=== PATIENT | male | born 1960 | race Caucasian/White ===

== ENCOUNTER 2018-02-09 01:11 | Inpatient (IN) | payer BC, OTHER ==
[2018-02-09 01:11] VITALS: BMI 33.4
[2018-02-09] MEDS ORDERED: Albuterol-Ipratrop 3 mg / 0.5 (3 ml) UD ONE ×3 (01:17→02:00)
[2018-02-09] MEDS ORDERED: Albuterol-Ipratrop 3 mg / 0.5 (3 ml) UD INH STA ×4 (01:26→02:02)
[2018-02-09] MEDS ORDERED: Sodium Chloride 0.9% 1,000 ML IV ONE (01:32)
--- NOTE | 2018-02-09 01:35 | C.PDOC ---
History Of Present Illness 57 year old male presents to the ED for evaluation of SOB associated with productive cough with white sputum. Patient states he used his nebulizer at home with no relief. Patient denies fever, chills, nausea, vomit, recent travel , sick contacts. Time Seen by Provider: 02/09/18 01:34 Chief Complaint (Nursing): Respiratory Distress History Per: Patient History/Exam Limitations: no limitations Onset/Duration Of Symptoms: Days Current Symptoms Are (Timing): Still Present Initiating Event: Upper Respiratory Illness Quality: Tightness Current Respiratory Medications: See Home Med List Associated Symptoms: Productive Cough Recent travel outside of the [place]: No Additional History Per: Patient Past Medical History Reviewed: Historical Data, Nursing Documentation, Vital Signs Vital Signs: Last Vital Signs Temp 98.9 F 02/09/18 03:22 Pulse 118 H 02/09/18 03:22 Resp 22 02/09/18 03:22 BP 129/90 02/09/18 03:22 Pulse Ox 100 02/09/18 03:22 - Medical History PMH: Asthma Surgical History: No Surg Hx Family History: States: Unknown Family Hx - Social History Hx Alcohol Use: No Hx Substance Use: No - Immunization History Hx Tetanus Toxoid Vaccination: No Hx Influenza Vaccination: No Hx Pneumococcal Vaccination: No Review Of Systems Constitutional: Negative for: Fever, Chills Respiratory: Positive for: Cough, Shortness of Breath, Sputum Gastrointestinal: Negative for: Nausea, Vomiting, Abdominal Pain Skin: Negative for: Rash Neurological: Negative for: Weakness, Numbness Physical Exam - Physical Exam Appears: Non-toxic, No Acute Distress Skin: Normal Color, Warm, Dry Head: Atraumatic, Normacephalic Eye(s): bilateral: Normal Inspection Nose: No Discharge Oral Mucosa: Moist Throat: Normal, No Erythema, No Exudate Neck: Normal ROM, Supple Chest: Symmetrical Cardiovascular: Rhythm Regular, No Murmur Respiratory: No Rales, No Rhonchi, Wheezing (B/L) Gastrointestinal/Abdominal: Soft, No Tenderness, No Guarding, No Rebound Extremity: Normal ROM, No Tenderness, No Swelling Neurological/Psych: Oriented x3 Gait: Steady ED Course And Treatment - Laboratory Results Result Diagrams: 02/09/18 01:41 02/09/18 01:41 ECG: Interpreted By Me, Viewed By Me ECG Rhythm: Sinus Tachycardia, ST/T Changes ECG Interpretation: No Acute Changes, No Changes From Prior, Abnormal Interpretation Of ECG: ST-T abnormality infero-layeral leads, abnormal tracings. Rate From EC O2 Sat by Pulse Oximetry: 95 (On RA) Pulse Ox Interpretation: Normal Medical Decision Making Medical Decision Making: Impression: SOB Plan: * EKG * Labs * CXR * Duoneb 3 ml INH * Solumedrol 125 mg IVP * IV fluids * Nebulizer treatment Disposition Discussed With DrJulienne: Andrea Schultz Jr. Doctor Will See Patient In The: Hospital Counseled Patient/Family Regarding: Diagnosis - Disposition Referrals: Non [facility] Provider, [Primary Care Provider] - Disposition: HOSPITALIZED Disposition Time: 04:06 Condition: STABLE Forms: [employer] (Polish) - POA Present On Arrival: None - Clinical Impression Clinical Impression: Exacerbation of asthma, Pneumonia - Scribe Statement The provider has reviewed the documentation as recorded by the Scribe Grupo Wilson All medical record entries made by the Scribe were at my direction and personally dictated by me. I have reviewed the chart and agree that the record accurately reflects my personal performance of the history, physical exam, medical decision making, and the department course for this patient. I have also personally directed, reviewed, and agree with the discharge instructions and disposition.
[2018-02-09] MEDS ORDERED: Sodium Chloride 0.9% 1,000 ML ONE (01:38)
[2018-02-09 01:47] LABS: BASO # 0.1 K/uL (0.0-0.2); BASO % 1.3 % (0.0-2.0); EOS # 0.3 K/uL (0.0-0.7); EOS % 4.7 % (0.0-4.0); HEMOGLOBIN 14.1 g/dL (12.0-18.0); LYMPH # 2.6 K/uL (1.0-4.3); LYMPH % 35.8 % (20.0-40.0); MEAN CELL VOLUME 77.9 fL (80.0-94.0); MEAN CORPUSCULAR HEMOGLOBIN 25.2 pg (27.0-31.0); MEAN CORPUSCULAR HGB CONC 32.4 g/dL (33.0-37.0); MONO # 0.9 K/uL (0.0-0.8); MONO % 12.1 % (0.0-10.0); NEUT # 3.3 K/uL (1.8-7.0); NEUT % 46.1 % (50.0-75.0); RBC 5.58 Mil/uL (4.40-5.90); RED CELL DISTRIBUTION WIDTH 14.1 % (11.5-14.5); WHITE BLOOD COUNT 7.2 K/uL (4.8-10.8)
[2018-02-09 01:57] LABS: ALB/GLOB RATIO 1.1 (1.0-2.1); ALBUMIN 3.8 g/dL (3.5-5.0); ALT/SGPT 42 U/L (21-72); AST/SGOT 21 U/L (17-59); BLOOD UREA NITROGEN 16 mg/dL (9-20); CALCIUM 8.4 mg/dl (8.6-10.4); GFR AFRICAN-AMERICAN > 60; GFR NON-AFRICAN AMERICAN > 60
[2018-02-09] MEDS ORDERED: Iohexol 350mg/ml 100 ML ONE (02:05)
[2018-02-09 02:08] LABS: B-TYPE NATRIURETIC PEPTIDE 1380 pg/mL (0-900)
[2018-02-09] MEDS: Magnesium Sulfate 1 gm in D5W 1 GM/100 ML BAG IVPB SCH ×2 (03:30→03:38)
[2018-02-09] MEDS ORDERED: Magnesium Sulfate 1 gm in D5W 1 GM/100 ML BAG IVPB ONE ×2 (03:34→03:44)
--- NOTE | 2018-02-09 03:41 | CT ---
EXAM: CT Chest Without and With Intravenous Contrast EXAM DATE/TIME: 02/09/2018 1:50 AM CLINICAL HISTORY: 57 years old, male; Pain; Chest pain; Prior surgery; Surgery type: Abd surgery; Patient HX: 08-28-15; Additional info: Sob/ wheezing/ abn. Chest CT before TECHNIQUE: Axial computed tomography images of the chest without and with intravenous contrast. All CT scans at this facility use one or more dose reduction techniques, viz.: automated exposure control; ma/kV adjustment per patient size (including targeted exams where dose is matched to indication; i.e. head); or iterative reconstruction technique. Coronal and sagittal reformatted images were created and reviewed. CONTRAST: 100 mL of [id number] administered intravenously. COMPARISON: CT - CHEST W/CONTRAST 2015-08-28 16:42 FINDINGS: Again seen is soft tissue density in the anterior right lung apex. On comparable images (image 23 prior, image 29) it has increased in size measuring 4 x 1.8 centimeters on prior and measuring 4.6 x 2.3 cm on current. There are are extensive cystic and bronchiectatic changes medial right lung apex similar to prior. There are multiple nodules in the left upper lung similar to prior (series 8 images 26, 44, 51. There is a pleural based soft tissue density measuring 1 cm in diameter series 8 image 69 increased in size slightly from prior. Patchy nodular infiltrate in the right lower lung new from prior. Bronchiectasis in the left lower lung similar to prior. Trace bilateral pleural fluid. Again seen is soft tissue density along the right superior aspect of the dion concerning for lymphadenopathy. The right posterior mediastinal lymphadenopathy seen on prior is not as apparent. No aortic aneurysm or dissection. Evaluation for pulmonary emboli limited by bolus timing and patient motion. IMPRESSION: Again seen is extensive bronchiectasis and cystic changes in the right upper lung. Again seen is soft tissue density within the anterior right lung apex and within the medial right upper lung, concerning for neoplasm and lymphadenopathy. As discussed in prior report, this could be further evaluated with PET scanning. Multiple nodules throughout the left lung some of which are similar to prior, one of which is increased as described in the body of the report. Nodular right lower lung infiltrate possibly of acute infectious/inflammatory etiology. Patient motion is present limiting exam.
[2018-02-09] MEDS ORDERED: Albuterol 0.083% Inhal Sol (2.5 mg/3 mL) UD IH STA (03:46)
[2018-02-09] MEDS ORDERED: cefTRIAXone IV 1 gm in Dextros 50 ML IVPB ONE ×2 (03:59→04:05)
[2018-02-09] MEDS ORDERED: Albuterol 0.083% Inhal Sol (2.5 mg/3 mL) UD ONE (03:59)
[2018-02-09] MEDS ORDERED: Azithromycin 500 MG in Sodium Chloride 0.9% 250 ML IVPB STA (04:00)
[2018-02-09 04:14] LABS: ABG ALLEN TEST POS; ARTERIAL BLOOD GAS HCO3 26.4 mmol/L (21-28); ARTERIAL BLOOD GAS HEMOGLOBIN 14.6 g/dL (11.7-17.4); ARTERIAL BLOOD GAS PCO2 52 mm/Hg (35-45); ARTERIAL BLOOD GAS PH 7.35 (7.35-7.45); ARTERIAL BLOOD GAS PO2 128 mm/Hg (80-100); ARTERIAL BLOOD GAS TCO2 30.3 mmol/L (22-28)
--- NOTE | 2018-02-09 04:39 | CP.PCM.HP ---
History of Present Illness - History of Present Illness History of Present Illness: CC: SOB HPI: Patient is a 57 y/o M with pmhx of asthma presents today for worsening shortness of breath. Patient started becoming short of breath and having chest congestion last . Patient had increasing cough with yellow phlegm. Patient denies fevers of sore throat. Patient denies chest pain, abdominal pain , N/V, C/D. Today patient used 3 nebulizer treatments. He went to sleep and woke up at midnight with chest tightness and severe shortness of breath and decided to come to the ED. Patient also complains of chest discomfort on the right side which he describes as something moving up and down. He experiences this when he is short of breath, but says it is not painful. Patient has never been intubated in the past but had a hospitalization for an asthma exacerbation in 1994 and 2012. Manager Corporate Responsibility: Dr. 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 absent: Sore Throat - Cardiovascular Cardiovascular: Dyspnea. absent: Chest Pain, Edema, Leg Edema, Palpitations - Respiratory Respiratory: Cough, Dyspnea, Dyspnea on Exertion, Wheezing, Excessive Mucous Production, Change in Mucous Color - Gastrointestinal Gastrointestinal: absent: Abdominal Pain, Change in Bowel Habits, Constipation, Diarrhea, Nausea, Vomiting - Musculoskeletal Musculoskeletal: absent: Arthralgias - Integumentary Integumentary: absent: Rash - Hematologic/Lymphatic Hematologic: absent: Easy Bleeding, Easy Bruising Past Patient History - Infectious Disease Hx of Infectious Diseases: None - Past Medical History & Family History Past Medical History?: Yes - Past Social History Smoking Status: Former Smoker - PULMONARY Hx Asthma: Yes - PSYCHIATRIC Hx Substance Use: No - SURGICAL HISTORY Hx Surgeries: Yes Hx Herniorrhaphy: Yes - ANESTHESIA Hx Anesthesia: Yes Hx Anesthesia Reactions: No Meds Allergies/Adverse Reactions: Allergies Allergy/AdvReac Type Severity Reaction Status Date / Time No Known Allergies Allergy Verified 02/09/18 01:20 Physical Exam - Additional Findings Additional findings: - Constitutional Appears: Non-toxic, No Acute Distress - Head Exam Head Exam: ATRAUMATIC, NORMAL INSPECTION, NORMOCEPHALIC - Eye Exam Eye Exam: EOMI, Normal appearance - ENT Exam ENT Exam: Mucous Membranes Moist - Respiratory Exam Respiratory Exam: Wheezes - Cardiovascular Exam Cardiovascular Exam: Tachycardia, REGULAR RHYTHM, +S1, +S2 - GI/Abdominal Exam GI & Abdominal Exam: Normal Bowel Sounds, Soft. absent: Tenderness - Extremities Exam Extremities exam: Positive for: normal inspection. Negative for: pedal edema - Back Exam Back exam: NORMAL INSPECTION - Neurological Exam Neurological exam: Alert, Oriented x3 - Psychiatric Exam Psychiatric exam: Normal Affect, Normal Mood - Skin Skin Exam: Intact, Normal Color, Warm Results - Vital Signs Recent Vital Signs: Last Vital Signs Temp 98.9 F 02/09/18 03:22 Pulse 118 H 02/09/18 03:22 Resp 22 02/09/18 03:22 BP 129/90 02/09/18 03:22 Pulse Ox 95 02/09/18 04:07 - Labs Result Diagrams: 02/09/18 01:41 02/09/18 01:41 Labs: Laboratory Results - last 24 hr 02/09/18 02/09/18 02/09/18 01:41 01:41 01:41 WBC 7.2 RBC 5.58 Hgb 14.1 Hct 43.5 MCV 77.9 L MCH 25.2 L MCHC 32.4 L RDW 14.1 Plt Count 281 MPV 9.0 Neut % (Auto) 46.1 L Lymph % (Auto) 35.8 [place] % (Auto) 12.1 H Eos % (Auto) 4.7 H Baso % (Auto) 1.3 Neut # (Auto) 3.3 Lymph # (Auto) 2.6 [place] # (Auto) 0.9 H Eos # (Auto) 0.3 Baso # (Auto) 0.1 D-Dimer, Quantitative < 200 Puncture Site pCO2 pO2 HCO3 ABG pH ABG Total CO2 ABG O2 Saturation ABG Base Excess ABG Hemoglobin ABG Carboxyhemoglobin POC ABG HHb (Measured) ABG Methemoglobin [place] Test Hgb O2 Saturation Liter Flow Sodium 139 Potassium 3.8 Chloride 99 Carbon Dioxide 28 Anion Gap 16 BUN 16 Creatinine 0.9 Est GFR ( Amer) > 60 Est GFR (Non-Af Amer) > 60 Random Glucose 110 Calcium 8.4 L Total Bilirubin 0.5 AST 21 ALT 42 Alkaline Phosphatase 45 Troponin I 0.0330 NT-Pro-B Natriuret Pep 1380 H Total Protein 7.3 Albumin 3.8 Globulin 3.4 Albumin/Globulin Ratio 1.1 02/09/18 04:10 WBC RBC Hgb Hct MCV MCH MCHC RDW Plt Count MPV Neut % (Auto) Lymph % (Auto) [place] % (Auto) Eos % (Auto) Baso % (Auto) Neut # (Auto) Lymph # (Auto) [place] # (Auto) Eos # (Auto) Baso # (Auto) D-Dimer, Quantitative Puncture Site Rr pCO2 52 H pO2 128 H HCO3 26.4 ABG pH 7.35 ABG Total CO2 30.3 H ABG O2 Saturation 99.0 H ABG Base Excess 2.0 ABG Hemoglobin 14.6 ABG Carboxyhemoglobin 1.9 H POC ABG HHb (Measured) 1.0 ABG Methemoglobin 1.3 [place] Test Pos Hgb O2 Saturation 95.8 Liter Flow 7.0 Sodium Potassium Chloride Carbon Dioxide Anion Gap BUN Creatinine Est GFR ( Amer) Est GFR (Non-Af Amer) Random Glucose Calcium Total Bilirubin AST ALT Alkaline Phosphatase Troponin I NT-Pro-B Natriuret Pep Total Protein Albumin Globulin Albumin/Globulin Ratio Assessment & Plan - Assessment and Plan (Free Text) Assessment: Asthma exacerbation CT: extensive bronchiectasis and cystic changes in right upper lung. soft tissue density within the anterior right lung apex and within the medial right upper lung, concerning for neoplasm and lymphadenopathy. could be further evaluated with PET scanning. multiple nodules throughout the left lung some of which are similar to prior, one of which is increase as described in body of the report. nodular right lower lung infiltrate possibly acute infectious/ inflammatory etiology D-Dimer <200 Duonebs q4h prn Solumedrol 40mg q8h Pulm consulted, Dr. Dominguez, help appreciated Right Lower Lobe Pneumonia see CT above f/u blood cultures Ceftriaxone 1gm daily Azithromycin 500mg daily Chest Discomfort Pro-BNP: 1380 Trop I : .0330 EKG: sinus tach at 114, biatrial enlargement f/u KE x2 Prophylaxis Pepcid 20mg po daily SCDs
[2018-02-09] MEDS ORDERED: Albuterol-Ipratrop 3 mg / 0.5 (3 ml) UD INH PRN (04:49)
[2018-02-09] MEDS: MethylPREDNISolone 40 mg Vial IVP SCH ×3 (06:56→19:56)
[2018-02-09] MEDS ORDERED: cefTRIAXone IV 1 gm in Dextros 50 ML IVPB SCH (07:00)
--- NOTE | 2018-02-09 07:51 | CP.PCM.PN ---
<Nelly Larios - Last Filed: 02/09/18 16:29> Subjective - Date & Time of Evaluation Date of Evaluation: 02/09/18 Time of Evaluation: 07:49 - Subjective Subjective: Progress note for Dr. Schultz Patient states his breathing is doing well. Patient states he did not have treatment today, but was told he would have a scheduled treatment. Patient explained his current plan of care. Patient denies fever, chills, cough, nausea , vomiting, diarrhea, constipation. Objective - Vital Signs/Intake and Output Vital Signs (last 24 hours): Temp Pulse Resp BP Pulse Ox 97.4 F L 122 H 20 123/72 97 02/09/18 05:30 02/09/18 06:00 02/09/18 05:30 02/09/18 05:30 02/09/18 05:30 Intake and Output: 02/09/18 02/09/18 06:59 18:59 Intake Total 1100 Output Total 400 Balance 700 - Medications Medications: Current Medications Albuterol/Ipratropium (Duoneb 3 Mg/0.5 Mg (3 Ml) Ud) 3 ml INH RQ4 PRN PRN Reason: Wheezing Albuterol/Ipratropium (Duoneb 3 Mg/0.5 Mg (3 Ml) Ud) 3 ml INH RQ4 [facility] Enoxaparin Sodium (Lovenox) 40 mg SC DAILY [facility] Famotidine (Pepcid) 20 mg PO DAILY [facility] Sodium Chloride (Sodium Chloride 0.9%) 1,000 mls @ 100 mls/hr IV .Q10H ONE Stop: 02/09/18 11:31 Last Admin: 02/09/18 01:35 Dose: 100 mls/hr Azithromycin 500 mg/ Sodium (Chloride) 250 mls @ 250 mls/hr IVPB DAILY [facility] PRN Reason: Protocol Ceftriaxone Sodium (Rocephin Iv 1 Gm Duplex) 50 mls @ 100 mls/hr IVPB Q12H [facility] PRN Reason: Protocol Last Admin: 02/09/18 06:28 Dose: 100 mls/hr Methylprednisolone (Solu-Medrol) 40 mg IVP Q8H [facility] Last Admin: 02/09/18 06:56 Dose: 40 mg Pneumococcal Polyvalent Vaccine (Pneumovax 23 Vaccine) 0.5 ml IM .ONCE ONE Stop: 03/25/18 10:01 - Labs Labs: 02/09/18 01:41 02/09/18 01:41 - Constitutional Appears: No Acute Distress - Head Exam Head Exam: ATRAUMATIC, NORMAL INSPECTION, NORMOCEPHALIC - Eye Exam Eye Exam: EOMI, Normal appearance Pupil Exam: NORMAL ACCOMODATION, PERRL - ENT Exam ENT Exam: Mucous Membranes Moist - Neck Exam Neck Exam: Full ROM. absent: Tenderness, Thyromegaly - Respiratory Exam Respiratory Exam: Wheezes, NORMAL BREATHING PATTERN. absent: Accessory Muscle Use - Cardiovascular Exam Cardiovascular Exam: Tachycardia, REGULAR RHYTHM, +S1, +S2 - GI/Abdominal Exam GI & Abdominal Exam: Soft, Normal Bowel Sounds. absent: Guarding, Rigid, Tenderness - Extremities Exam Extremities Exam: Full ROM, Normal Inspection. absent: Pedal Edema - Neurological Exam Neurological Exam: Awake, CN II-XII Intact, Oriented x3 - Psychiatric Exam Psychiatric exam: Normal Affect, Normal Mood - Skin Skin Exam: Dry, Intact, Normal Color, Warm Assessment and Plan - Assessment and Plan (Free Text) Assessment: 57M with pmh of asthma prsents with shortness of breath and chest congestion with productive cough. Asthma exacerbation CT: extensive bronchiectasis and cystic changes in right upper lung. soft tissue density within the anterior right lung apex and within the medial right upper lung, concerning for neoplasm and lymphadenopathy. could be further evaluated with PET scanning. multiple nodules throughout the left lung some of which are similar to prior, one of which is increase as described in body of the report. nodular right lower lung infiltrate possibly acute infectious/ inflammatory etiology D-Dimer <200 Duonebs q4h prn, alternating Duonebs Q4H [facility], discontinued atrovent IH Solumedrol 40mg q8h Pulm consult: Dr. Dominguez Right Lower Lobe Pneumonia see CT above f/u blood cultures Ceftriaxone 1gm daily Azithromycin 500mg daily Chest Discomfort Pro-BNP: 1380 Trop I : .0330, negative x 3 EKG: sinus tach at 114, biatrial enlargement Prophylaxis Pepcid 20mg po daily SCDs <Andrea Schultz Jr. - Last Filed: 02/13/18 15:46> Objective - Vital Signs/Intake and Output Vital Signs (last 24 hours): Temp Pulse Resp BP Pulse Ox 97.7 F 78 20 148/86 94 L 02/13/18 07:05 02/13/18 07:21 02/13/18 07:05 02/13/18 07:05 02/13/18 07:05 Intake and Output: 02/13/18 02/13/18 06:59 18:59 Intake Total 600 710 Output Total 200 Balance 400 710 - Medications Medications: Current Medications Albuterol/Ipratropium (Duoneb 3 Mg/0.5 Mg (3 Ml) Ud) 3 ml INH RQ4 [facility] Enoxaparin Sodium (Lovenox) 40 mg SC DAILY [facility] Last Admin: 02/13/18 10:02 Dose: 40 mg Famotidine (Pepcid) 20 mg PO DAILY [facility] Last Admin: 02/13/18 10:02 Dose: 20 mg Guaifenesin (Robitussin) 100 mg PO Q4H [facility] Last Admin: 02/13/18 13:36 Dose: 100 mg Moxifloxacin HCl (Avelox) 400 mg PO DAILY [facility] PRN Reason: Protocol Last Admin: 02/13/18 10:02 Dose: 400 mg - Labs Labs: 02/13/18 06:17 02/13/18 06:17 Attending/Attestation - Attestation I have personally seen and examined this patient.: Yes I have fully participated in the care of the patient.: Yes I have reviewed all pertinent clinical information, including history, physical exam and plan: Yes Notes (Text): 02/13/18 15:46 Agree with resident note and plan of care
[2018-02-09] MEDS: Albuterol-Ipratrop 3 mg / 0.5 (3 ml) UD INH SCH ×4 (08:06→20:02)
[2018-02-09 08:14] LABS: BASO % 0.3 % (0.0-2.0); HEMOGLOBIN 13.4 g/dL (12.0-18.0); LYMPH # 0.3 K/uL (1.0-4.3); LYMPH % 4.5 % (20.0-40.0); MEAN CELL VOLUME 77.7 fL (80.0-94.0); MEAN CORPUSCULAR HEMOGLOBIN 25.6 pg (27.0-31.0); MEAN CORPUSCULAR HGB CONC 32.9 g/dL (33.0-37.0); MEAN PLATELET VOLUME 9.3 fL (7.2-11.7); MONO # 0.1 K/uL (0.0-0.8); MONO % 0.9 % (0.0-10.0); NEUT % 94.3 % (50.0-75.0); NRBC % 0.1 % (0.0-2.0); PLATELET COUNT 273 K/uL (130-400); RBC 5.26 Mil/uL (4.40-5.90); WHITE BLOOD COUNT 7.5 K/uL (4.8-10.8)
[2018-02-09 08:26] LABS: ALB/GLOB RATIO 1.1 (1.0-2.1); ALBUMIN 3.6 g/dL (3.5-5.0); ALT/SGPT 37 U/L (21-72); AST/SGOT 24 U/L (17-59); BLOOD UREA NITROGEN 12 mg/dL (9-20); CALCIUM 8.1 mg/dl (8.6-10.4); GFR AFRICAN-AMERICAN > 60; GFR NON-AFRICAN AMERICAN > 60
[2018-02-09 08:33] LABS: CK-MB 3.43 ng/mL (0.0-3.38)
[2018-02-09 08:41] LABS: LYMPHOCYTE 4 % (20-40); MONOCYTE 1 % (0-10); NEUTROPHIL 95 % (50-75); TOTAL CELLS COUNTED 100
[2018-02-09 08:42] LABS: HYPOCHROMIC SLIGHT; MICROCYTOSIS SLIGHT; PLATELET ESTIMATE NORMAL (NORMAL)
[2018-02-09 08:43] LABS: POLYCHROMIC SLIGHT
--- NOTE | 2018-02-09 08:55 | RAD ---
HISTORY: asthma .. sob COMPARISON: 08/22/2015 FINDINGS: LUNGS: Right upper lobe volume loss with probable bronchiectasis and chronic consolidation. Patchy opacity at right base may reflect early pneumonia. Followup advised. PLEURA: No significant pleural effusion identified, no pneumothorax apparent. CARDIOVASCULAR: Normal. OSSEOUS STRUCTURES: No significant abnormalities. VISUALIZED UPPER ABDOMEN: Normal. OTHER FINDINGS: None. IMPRESSION: Chronic right upper lobe volume loss with associated bronchiectasis. Patchy opacity at right base. Followup to rule out developing pneumonia.
[2018-02-09] MEDS ORDERED: Azithromycin 500 MG in Sodium Chloride 0.9% 250 ML IVPB SCH (10:00)
[2018-02-09] MEDS: Enoxaparin 40 mg Syringe SC SCH (10:20)
[2018-02-09 14:49] LABS: CK-MB 4.92 ng/mL (0.0-3.38); TROPONIN I 0.059 ng/mL (0.00-0.120)
[2018-02-09] MEDS ORDERED: MethylPREDNISolone 40 mg Vial IVP SCH (15:00)
[2018-02-09] MEDS ORDERED: Ipratropium 0.02% Inhal Soln (0.5 mg/2.5 ml) UD IH PRN (16:28)
--- NOTE | 2018-02-09 16:31 | CP.PCM.CON ---
History of Present Illness - History of Present Illness History of Present Illness: Mr Hicks is a 57 year old male with PMHx of asthma who presented to the ED on 02/09 for evaluation of shortness of breath with productive cough (white-yellow sputum). Patient states he used his nebulizer x3 at home with no relief. Patient woke up from sleep due to chest tightness and severe shortness of breath. No history of intubation, hospitalized for asthma exacerbation in 1994 and in 2012. Patient seen and examined at bedside today Denies fever/chills, chest pain, cough On supplemental oxygen, saturation 96-98% Afebrile PMHx: asthma PSHx: hernia repair 2014 Social Hx: former smoker, quit 20 years ago, 20 pack-year history; denies alcohol/drug use Review of Systems - Review of Systems All systems: reviewed and no additional remarkable complaints except ( complaining of shortness of breath) Past Patient History - Infectious Disease Hx of Infectious Diseases: None - Past Medical History & Family History Past Medical History?: Yes - Past Social History Smoking Status: Former Smoker - PULMONARY Hx Asthma: Yes - PSYCHIATRIC Hx Substance Use: No - SURGICAL HISTORY Hx Surgeries: Yes Hx Herniorrhaphy: Yes - ANESTHESIA Hx Anesthesia: Yes Hx Anesthesia Reactions: No Meds Allergies/Adverse Reactions: Allergies Allergy/AdvReac Type Severity Reaction Status Date / Time No Known Allergies Allergy Verified 02/09/18 01:20 - Medications Medications: Current Medications Enoxaparin Sodium (Lovenox) 40 mg SC DAILY [facility] Last Admin: 02/09/18 10:20 Dose: 40 mg Famotidine (Pepcid) 20 mg PO DAILY [facility] Last Admin: 02/09/18 10:20 Dose: 20 mg Ceftriaxone Sodium (Rocephin Iv 1 Gm Duplex) 50 mls @ 100 mls/hr IVPB Q12H [facility] PRN Reason: Protocol Last Admin: 02/09/18 06:28 Dose: 100 mls/hr Azithromycin 500 mg/ Sodium (Chloride) 250 mls @ 250 mls/hr IVPB Q24H [facility] PRN Reason: Protocol Ipratropium L[place] (Atrovent) 0.5 mg IH J2MICCL PRN PRN Reason: Shortness of Breath Methylprednisolone (Solu-Medrol) 40 mg IVP Q6H [facility] Pneumococcal Polyvalent Vaccine (Pneumovax 23 Vaccine) 0.5 ml IM .ONCE ONE Stop: 02/12/18 10:01 Physical Exam - Head Exam Head Exam: ATRAUMATIC, NORMOCEPHALIC - Eye Exam Eye Exam: Normal appearance - ENT Exam ENT Exam: Mucous Membranes Moist - Neck Exam Neck exam: Positive for: Normal Inspection - Respiratory Exam Respiratory Exam: Rhonchi, Wheezes - Cardiovascular Exam Cardiovascular Exam: REGULAR RHYTHM - GI/Abdominal Exam GI & Abdominal Exam: Normal Bowel Sounds - Extremities Exam Extremities exam: Positive for: normal inspection Results - Vital Signs Recent Vital Signs: Last Vital Signs Temp 97.5 F L 02/09/18 16:03 Pulse 101 H 02/09/18 16:03 Resp 20 02/09/18 16:03 BP 123/75 02/09/18 16:03 Pulse Ox 97 02/09/18 16:03 - Labs Result Diagrams: 02/09/18 07:56 02/09/18 07:56 Labs: Laboratory Results - last 24 hr 02/09/18 02/09/18 02/09/18 01:41 01:41 01:41 WBC 7.2 RBC 5.58 Hgb 14.1 Hct 43.5 MCV 77.9 L MCH 25.2 L MCHC 32.4 L RDW 14.1 Plt Count 281 MPV 9.0 Neut % (Auto) 46.1 L Lymph % (Auto) 35.8 Emanuel % (Auto) 12.1 H Eos % (Auto) 4.7 H Baso % (Auto) 1.3 Neut # (Auto) 3.3 Lymph # (Auto) 2.6 Emanuel # (Auto) 0.9 H Eos # (Auto) 0.3 Baso # (Auto) 0.1 Neutrophils % (Manual) Lymphocytes % (Manual) Monocytes % (Manual) Platelet Estimate Polychromasia Hypochromasia (manual) Microcytosis (manual) D-Dimer, Quantitative < 200 Puncture Site pCO2 pO2 HCO3 ABG pH ABG Total CO2 ABG O2 Saturation ABG Base Excess ABG Hemoglobin ABG Carboxyhemoglobin POC ABG HHb (Measured) ABG Methemoglobin [place] Test Hgb O2 Saturation Liter Flow Sodium 139 Potassium 3.8 Chloride 99 Carbon Dioxide 28 Anion Gap 16 BUN 16 Creatinine 0.9 Est GFR ( Amer) > 60 Est GFR (Non-Af Amer) > 60 Random Glucose 110 Calcium 8.4 L Phosphorus Magnesium Total Bilirubin 0.5 AST 21 ALT 42 Alkaline Phosphatase 45 Total Creatine Kinase CK-MB (Mass) Troponin I 0.0330 NT-Pro-B Natriuret Pep 1380 H Total Protein 7.3 Albumin 3.8 Globulin 3.4 Albumin/Globulin Ratio 1.1 02/09/18 02/09/18 02/09/18 04:10 07:56 07:56 WBC 7.5 RBC 5.26 Hgb 13.4 Hct 40.8 MCV 77.7 L MCH 25.6 L MCHC 32.9 L RDW 14.0 Plt Count 273 MPV 9.3 Neut % (Auto) 94.3 H Lymph % (Auto) 4.5 L Emanuel % (Auto) 0.9 Eos % (Auto) 0.0 Baso % (Auto) 0.3 Neut # (Auto) 7.0 Lymph # (Auto) 0.3 L Emanuel # (Auto) 0.1 Eos # (Auto) 0.0 Baso # (Auto) 0.0 Neutrophils % (Manual) 95 H Lymphocytes % (Manual) 4 L Monocytes % (Manual) 1 Platelet Estimate Normal Polychromasia Slight Hypochromasia (manual) Slight Microcytosis (manual) Slight D-Dimer, Quantitative Puncture Site Rr pCO2 52 H pO2 128 H HCO3 26.4 ABG pH 7.35 ABG Total CO2 30.3 H ABG O2 Saturation 99.0 H ABG Base Excess 2.0 ABG Hemoglobin 14.6 ABG Carboxyhemoglobin 1.9 H POC ABG HHb (Measured) 1.0 ABG Methemoglobin 1.3 [place] Test Pos Hgb O2 Saturation 95.8 Liter Flow 7.0 Sodium 138 Potassium 4.2 Chloride 98 Carbon Dioxide 26 Anion Gap 18 BUN 12 Creatinine 0.7 L Est GFR ( Amer) > 60 Est GFR (Non-Af Amer) > 60 Random Glucose 165 H Calcium 8.1 L Phosphorus 3.6 Magnesium 2.3 Total Bilirubin 0.4 AST 24 ALT 37 Alkaline Phosphatase 44 Total Creatine Kinase 254 H CK-MB (Mass) 3.43 H Troponin I 0.0490 NT-Pro-B Natriuret Pep Total Protein 6.9 Albumin 3.6 Globulin 3.3 Albumin/Globulin Ratio 1.1 02/09/18 14:11 WBC RBC Hgb Hct MCV MCH MCHC RDW Plt Count MPV Neut % (Auto) Lymph % (Auto) Emanuel % (Auto) Eos % (Auto) Baso % (Auto) Neut # (Auto) Lymph # (Auto) Emanuel # (Auto) Eos # (Auto) Baso # (Auto) Neutrophils % (Manual) Lymphocytes % (Manual) Monocytes % (Manual) Platelet Estimate Polychromasia Hypochromasia (manual) Microcytosis (manual) D-Dimer, Quantitative Puncture Site pCO2 pO2 HCO3 ABG pH ABG Total CO2 ABG O2 Saturation ABG Base Excess ABG Hemoglobin ABG Carboxyhemoglobin POC ABG HHb (Measured) ABG Methemoglobin [place] Test Hgb O2 Saturation Liter Flow Sodium Potassium Chloride Carbon Dioxide Anion Gap BUN Creatinine Est GFR ( Amer) Est GFR (Non-Af Amer) Random Glucose Calcium Phosphorus Magnesium Total Bilirubin AST ALT Alkaline Phosphatase Total Creatine Kinase 331 H CK-MB (Mass) 4.92 H Troponin I 0.0590 NT-Pro-B Natriuret Pep Total Protein Albumin Globulin Albumin/Globulin Ratio Assessment & Plan (1) Exacerbation of asthma Status: Acute Comment: 1. Asthma exacerbation. -Most recent chest XR on 02/09: Chronic right upper lobe volume loss with associated bronchiectasis. Patchy opacity at right base. Followup to rule out developing pneumonia. -Most recent chest CT without contrast on 02/09: Again seen is extensive bronchiectasis and cystic changes in the right upper lung. Again seen is soft tissue density within the anterior right lung apex and within the medial right upper lung, concerning for neoplasm and lymphadenopathy. As discussed in prior report, this could be further evaluated with PET scanning. Multiple nodules throughout the left lung some of which are similar to prior, one of which is increased as described in the body of the report. Nodular right lower lung infiltrate possibly of acute infectious/ inflammatory etiology. -Continue nebulizer treatment. -Continue IV Solumedrol. -Follow up chest XR. 2. Right lower lobe pneumonia. -Most recent chest CT indicates right lower lobe infiltrate suspicious for pneumonia. - Continue IV antibiotics azithromycin and ceftriaxone (2) Pneumonia Status: Acute
[2018-02-09] MEDS: Piperacill/Tazo 3.375gm in Dex 3.375 GM/50 ML BAG IVPB SCH (17:43)
[2018-02-09 17:52] LABS: CK-MB 5.5 ng/mL (0.0-3.38); TROPONIN I 0.073 ng/mL (0.00-0.120)
[2018-02-09 22:58] LABS: CK-MB 6.83 ng/mL (0.0-3.38); TROPONIN I 0.071 ng/mL (0.00-0.120)
[2018-02-10] MEDS: Albuterol-Ipratrop 3 mg / 0.5 (3 ml) UD INH SCH ×6 (00:20→20:28)
[2018-02-10] MEDS: Piperacill/Tazo 3.375gm in Dex 3.375 GM/50 ML BAG IVPB SCH ×3 (00:55→17:04)
[2018-02-10] MEDS: MethylPREDNISolone 40 mg Vial IVP SCH ×4 (01:00→20:24)
[2018-02-10] MEDS ORDERED: Albuterol 0.042% Inhal Sol (1.25 mg/3 mL) UD INH PRN (01:06)
[2018-02-10 02:29] LABS: CK-MB 7.45 ng/mL (0.0-3.38)
[2018-02-10 02:33] LABS: TROPONIN I 0.071 ng/mL (0.00-0.120)
[2018-02-10] MEDS: Azithromycin 500 MG in Sodium Chloride 0.9% 250 ML IVPB SCH (04:09)
[2018-02-10] MEDS ORDERED: Magnesium Sulfate 1 gm in D5W 1 GM/100 ML BAG IVPB ONE (04:34)
[2018-02-10 07:21] LABS: BASO % 0.3 % (0.0-2.0); HEMOGLOBIN 13.3 g/dL (12.0-18.0); LYMPH # 0.7 K/uL (1.0-4.3); LYMPH % 8.1 % (20.0-40.0); MEAN CELL VOLUME 77.8 fL (80.0-94.0); MEAN CORPUSCULAR HEMOGLOBIN 25.5 pg (27.0-31.0); MEAN CORPUSCULAR HGB CONC 32.8 g/dL (33.0-37.0); MEAN PLATELET VOLUME 9.3 fL (7.2-11.7); MONO # 0.2 K/uL (0.0-0.8); MONO % 2.5 % (0.0-10.0); NEUT # 8.2 K/uL (1.8-7.0); NEUT % 89.1 % (50.0-75.0); PLATELET COUNT 288 K/uL (130-400); RBC 5.22 Mil/uL (4.40-5.90); RED CELL DISTRIBUTION WIDTH 13.9 % (11.5-14.5); WHITE BLOOD COUNT 9.2 K/uL (4.8-10.8)
[2018-02-10 08:07] LABS: ALB/GLOB RATIO 1.1 (1.0-2.1); ALBUMIN 3.7 g/dL (3.5-5.0); ALT/SGPT 43 U/L (21-72); AST/SGOT 30 U/L (17-59); BLOOD UREA NITROGEN 15 mg/dL (9-20); CALCIUM 8.4 mg/dl (8.6-10.4); GFR AFRICAN-AMERICAN > 60; GFR NON-AFRICAN AMERICAN > 60
[2018-02-10 08:51] LABS: LYMPHOCYTE 11 % (20-40); MONOCYTE 2 % (0-10); NEUTROPHIL 87 % (50-75); PLATELET ESTIMATE NORMAL (NORMAL); TOTAL CELLS COUNTED 100
[2018-02-10] MEDS: Enoxaparin 40 mg Syringe SC SCH (09:27)
--- NOTE | 2018-02-10 10:20 | CP.PCM.PN ---
Subjective - Date & Time of Evaluation Date of Evaluation: 02/10/18 Time of Evaluation: 10:11 - Subjective Subjective: Medicine progress note for Dr. Schultz's service Patient was seen and examined at bedside in no acute distress. Patient states his cough has no improved, still productive of white sputum, and now his chest and abdomen hurt when he coughs. Patient denies fevers, headaches, dysuria, diarrhea, constipation, nausea, vomiting, and leg pain/swelling. Objective - Vital Signs/Intake and Output Vital Signs (last 24 hours): Temp Pulse Resp BP Pulse Ox 97.5 F L 88 20 110/73 98 02/10/18 08:00 02/10/18 08:00 02/10/18 08:00 02/10/18 08:00 02/10/18 08:00 Intake and Output: 02/10/18 02/10/18 06:59 18:59 Intake Total 480 Output Total 300 Balance 180 - Medications Medications: Current Medications Albuterol/Ipratropium (Duoneb 3 Mg/0.5 Mg (3 Ml) Ud) 3 ml INH RQ4 [facility] Last Admin: 02/10/18 08:30 Dose: 3 ml Enoxaparin Sodium (Lovenox) 40 mg SC DAILY [facility] Last Admin: 02/10/18 09:27 Dose: 40 mg Famotidine (Pepcid) 20 mg PO DAILY [facility] Last Admin: 02/10/18 09:20 Dose: 20 mg Guaifenesin (Robitussin) 100 mg PO Q4H PRN PRN Reason: Cough Azithromycin 500 mg/ Sodium (Chloride) 250 mls @ 250 mls/hr IVPB Q24H [facility] PRN Reason: Protocol Last Admin: 02/10/18 04:09 Dose: 250 mls/hr Piperacillin Sod/Tazobactam Sod (Zosyn 3.375 Gm Iv Premix) 3.375 gm in 50 mls @ 200 mls/hr IVPB Q8H [facility] PRN Reason: Protocol Last Admin: 02/10/18 09:20 Dose: 200 mls/hr Methylprednisolone (Solu-Medrol) 40 mg IVP Q6H [facility] Last Admin: 02/10/18 07:45 Dose: 40 mg Pneumococcal Polyvalent Vaccine (Pneumovax 23 Vaccine) 0.5 ml IM .ONCE ONE Stop: 02/12/18 10:01 - Labs Labs: 02/10/18 06:59 02/10/18 06:59 - Constitutional Appears: No Acute Distress - Head Exam Head Exam: ATRAUMATIC, NORMAL INSPECTION - Eye Exam Eye Exam: EOMI, Normal appearance - ENT Exam ENT Exam: Mucous Membranes Moist - Respiratory Exam Respiratory Exam: Rhonchi, Wheezes, NORMAL BREATHING PATTERN. absent: Clear to Ausculation Bilateral - Cardiovascular Exam Cardiovascular Exam: REGULAR RHYTHM, +S1, +S2 - GI/Abdominal Exam GI & Abdominal Exam: Soft, Normal Bowel Sounds. absent: Distended, Tenderness - Extremities Exam Extremities Exam: Pedal Edema (mild pitting edema b/l). absent: Calf Tenderness , Tenderness - Neurological Exam Neurological Exam: Alert, Awake, Oriented x3 - Psychiatric Exam Psychiatric exam: Normal Affect, Normal Mood - Skin Skin Exam: Dry, Intact, Normal Color, Warm Assessment and Plan - Assessment and Plan (Free Text) Plan: 57M with pmh of asthma presents with shortness of breath and chest congestion with productive cough. Asthma exacerbation CT: extensive bronchiectasis and cystic changes in right upper lung. soft tissue density within the anterior right lung apex and within the medial right upper lung, concerning for neoplasm and lymphadenopathy. could be further evaluated with PET scanning. multiple nodules throughout the left lung some of which are similar to prior, one of which is increase as described in body of the report. nodular right lower lung infiltrate possibly acute infectious/ inflammatory etiology D-Dimer <200 Pulm consult: Dr. Dominguez, help appreciated Duonebs q4h [facility] Solumedrol 40mg q6h Right Lower Lobe Pneumonia see CT above Blood cultures: negative Azithromycin 500mg daily Ceftriaxone 1gm daily (discontinued by pulm) Cough Robitussin Q4h prn Chest Discomfort Pro-BNP: 1380 Trop I : 0.0330, negative x 3 EKG: sinus tach at 114, biatrial enlargement Prophylaxis Pepcid 20mg po daily [facility]
--- NOTE | 2018-02-10 10:29 | CARD ---
APPROVED REPORT EKG Measurement Heart [id number] [place] [id number] <Conclusion> Sinus tachycardia Right atrial enlargement ST & T wave abnormality, consider inferior ischemia Abnormal ECG
--- NOTE | 2018-02-10 10:29 | CARD ---
APPROVED REPORT EKG Measurement Heart [id number] [place] [id number] [id number] <Conclusion> Sinus tachycardia Biatrial enlargement ST & T wave abnormality, consider inferolateral ischemia Abnormal ECG
--- NOTE | 2018-02-10 10:29 | CARD ---
APPROVED REPORT EKG Measurement Heart [id number] [place] [id number] [id number] <Conclusion> Sinus tachycardia Right atrial enlargement.lae. lvh. ST & T wave abnormality, consider inferior,lateral ischemia Abnormal ECG
[2018-02-10] MEDS: guaiFENesin 100 mg/5 ml Syrup UD PO PRN ×2 (10:38→14:09)
--- NOTE | 2018-02-10 13:17 | CP.PCM.PN ---
Subjective - Date & Time of Evaluation Date of Evaluation: 02/10/18 Time of Evaluation: 09:45 - Subjective Subjective: Patient seen and examined at bedside today. Patient is still wheezing and states he has been having some pain with coughing. On supplemental oxygen, saturation 96-98% Afebrile Assessment/Plan: 1. Asthma exacerbation -Most recent chest XR on 02/09: Chronic right upper lobe volume loss with associated bronchiectasis. Patchy opacity at right base. Followup to rule out developing pneumonia. - Non-contrast CT 02/09: Again seen is extensive bronchiectasis and cystic changes in the right upper lung. Again seen is soft tissue density within the anterior right lung apex and within the medial right upper lung, concerning for neoplasm and lymphadenopathy. As discussed in prior report, this could be further evaluated with PET scanning. Multiple nodules throughout the left lung some of which are similar to prior, one of which is increased as described in the body of the report. Nodular right lower lung infiltrate possibly of acute infectious/inflammatory etiology. -Continue nebulizer treatment -Continue IV Solumedrol -Follow up chest XR 2. Right lower lobe pneumonia -Most recent chest CT indicates right lower lobe infiltrate suspicious for pneumonia -Continue IV antibiotics Objective - Vital Signs/Intake and Output Vital Signs (last 24 hours): Temp Pulse Resp BP Pulse Ox 97.5 F L 88 20 110/73 98 02/10/18 08:00 02/10/18 08:00 02/10/18 08:00 02/10/18 08:00 02/10/18 08:00 Intake and Output: 02/10/18 02/10/18 06:59 18:59 Intake Total 480 Output Total 300 Balance 180 - Medications Medications: Current Medications Albuterol/Ipratropium (Duoneb 3 Mg/0.5 Mg (3 Ml) Ud) 3 ml INH RQ4 [facility] Last Admin: 02/10/18 12:44 Dose: 3 ml Enoxaparin Sodium (Lovenox) 40 mg SC DAILY [facility] Last Admin: 02/10/18 09:27 Dose: 40 mg Famotidine (Pepcid) 20 mg PO DAILY [facility] Last Admin: 02/10/18 09:20 Dose: 20 mg Guaifenesin (Robitussin) 100 mg PO Q4H PRN PRN Reason: Cough Last Admin: 02/10/18 10:38 Dose: 100 mg Azithromycin 500 mg/ Sodium (Chloride) 250 mls @ 250 mls/hr IVPB Q24H [facility] PRN Reason: Protocol Last Admin: 02/10/18 04:09 Dose: 250 mls/hr Piperacillin Sod/Tazobactam Sod (Zosyn 3.375 Gm Iv Premix) 3.375 gm in 50 mls @ 200 mls/hr IVPB Q8H [facility] PRN Reason: Protocol Last Admin: 02/10/18 09:20 Dose: 200 mls/hr Methylprednisolone (Solu-Medrol) 40 mg IVP Q6H [facility] Last Admin: 02/10/18 07:45 Dose: 40 mg Pneumococcal Polyvalent Vaccine (Pneumovax 23 Vaccine) 0.5 ml IM .ONCE ONE Stop: 02/12/18 10:01 - Labs Labs: 02/10/18 06:59 02/10/18 06:59 Assessment and Plan (1) Exacerbation of asthma Status: Acute (2) Pneumonia Status: Acute
[2018-02-11] MEDS: Albuterol-Ipratrop 3 mg / 0.5 (3 ml) UD INH SCH ×4 (00:27→11:42)
[2018-02-11] MEDS: MethylPREDNISolone 40 mg Vial IVP SCH ×4 (02:19→19:55)
[2018-02-11] MEDS: Piperacill/Tazo 3.375gm in Dex 3.375 GM/50 ML BAG IVPB SCH ×3 (02:20→16:29)
[2018-02-11] MEDS: Azithromycin 500 MG in Sodium Chloride 0.9% 250 ML IVPB SCH (05:21)
[2018-02-11 07:40] LABS: BASO % 0.2 % (0.0-2.0); HEMOGLOBIN 13.6 g/dL (12.0-18.0); LYMPH # 0.8 K/uL (1.0-4.3); LYMPH % 6.9 % (20.0-40.0); MEAN CELL VOLUME 78.9 fL (80.0-94.0); MEAN CORPUSCULAR HEMOGLOBIN 25.3 pg (27.0-31.0); MEAN CORPUSCULAR HGB CONC 32.1 g/dL (33.0-37.0); MEAN PLATELET VOLUME 9.5 fL (7.2-11.7); MONO # 0.3 K/uL (0.0-0.8); NEUT # 10.3 K/uL (1.8-7.0); NEUT % 89.9 % (50.0-75.0); PLATELET COUNT 304 K/uL (130-400); RBC 5.37 Mil/uL (4.40-5.90); WHITE BLOOD COUNT 11.5 K/uL (4.8-10.8)
[2018-02-11 07:52] LABS: ALB/GLOB RATIO 1.1 (1.0-2.1); ALBUMIN 3.6 g/dL (3.5-5.0); ALT/SGPT 51 U/L (21-72); AST/SGOT 41 U/L (17-59); BLOOD UREA NITROGEN 25 mg/dL (9-20); CALCIUM 8.3 mg/dl (8.6-10.4); GFR AFRICAN-AMERICAN > 60; GFR NON-AFRICAN AMERICAN > 60
--- NOTE | 2018-02-11 07:57 | CP.PCM.PN ---
Subjective - Date & Time of Evaluation Date of Evaluation: 02/11/18 Time of Evaluation: 07:56 - Subjective Subjective: PGY-[address] Schultz's Service: Patient was seen and examined at bedside. Nursing reports no acute events overnight. Patient found with daughters at bedside, in no acute distress. Pt states cough/breathing improved since admission, but is still experiencing dyspnea with exertion. He states his cough remains productive with a white discharge. Nursing denies fever, chills, chest pain, abdominal pain, N/V. He denies sick contacts. Objective - Vital Signs/Intake and Output Vital Signs (last 24 hours): Temp Pulse Resp BP Pulse Ox 97.7 F 92 H 20 134/84 99 02/11/18 07:00 02/11/18 07:00 02/11/18 07:00 02/11/18 07:00 02/11/18 07:00 - Medications Medications: Current Medications Albuterol/Ipratropium (Duoneb 3 Mg/0.5 Mg (3 Ml) Ud) 3 ml INH RQ4 [facility] Last Admin: 02/11/18 07:21 Dose: 3 ml Enoxaparin Sodium (Lovenox) 40 mg SC DAILY [facility] Last Admin: 02/10/18 09:27 Dose: 40 mg Famotidine (Pepcid) 20 mg PO DAILY [facility] Last Admin: 02/10/18 09:20 Dose: 20 mg Guaifenesin (Robitussin) 100 mg PO Q4H PRN PRN Reason: Cough Last Admin: 02/10/18 14:09 Dose: 100 mg Azithromycin 500 mg/ Sodium (Chloride) 250 mls @ 250 mls/hr IVPB Q24H [facility] PRN Reason: Protocol Last Admin: 02/11/18 05:21 Dose: 250 mls/hr Piperacillin Sod/Tazobactam Sod (Zosyn 3.375 Gm Iv Premix) 3.375 gm in 50 mls @ 200 mls/hr IVPB Q8H [facility] PRN Reason: Protocol Last Admin: 02/11/18 02:20 Dose: 200 mls/hr Methylprednisolone (Solu-Medrol) 40 mg IVP Q6H [facility] Last Admin: 02/11/18 02:19 Dose: 40 mg Pneumococcal Polyvalent Vaccine (Pneumovax 23 Vaccine) 0.5 ml IM .ONCE ONE Stop: 02/12/18 10:01 - Labs Labs: 02/11/18 07:17 02/11/18 07:17 - Additional Findings Additional findings: - Constitutional Appears: No Acute Distress - Head Exam Head Exam: ATRAUMATIC, NORMAL INSPECTION - Eye Exam Eye Exam: EOMI, Normal appearance - ENT Exam ENT Exam: Mucous Membranes Moist - Respiratory Exam Respiratory Exam: Rhonchi, Wheezes (worse in upper lung rodriguez), NORMAL BREATHING PATTERN. absent: Clear to Ausculation Bilateral - Cardiovascular Exam Cardiovascular Exam: REGULAR RHYTHM, +S1, +S2 - GI/Abdominal Exam GI & Abdominal Exam: Soft, Normal Bowel Sounds. absent: Distended, Tenderness - Extremities Exam Extremities Exam: Pedal Edema (mild pitting edema b/l). absent: Calf Tenderness , Tenderness - Neurological Exam Neurological Exam: Alert, Awake, Oriented x3 - Psychiatric Exam Psychiatric exam: Normal Affect, Normal Mood - Skin Skin Exam: Dry, Intact, Normal Color, Warm Assessment and Plan - Assessment and Plan (Free Text) Plan: 57M with pmh of asthma presents with shortness of breath and chest congestion with productive cough. Asthma exacerbation CT: extensive bronchiectasis and cystic changes in right upper lung. soft tissue density within the anterior right lung apex and within the medial right upper lung, concerning for neoplasm and lymphadenopathy. could be further evaluated with PET scanning. multiple nodules throughout the left lung some of which are similar to prior, one of which is increase as described in body of the report. nodular right lower lung infiltrate possibly acute infectious/ inflammatory etiology D-Dimer <200 Pulm consult: Dr. Dominguez, help appreciated Duonebs q4h [facility] Solumedrol 40mg q6h Right Lower Lobe Pneumonia see CT above Blood cultures: negative Azithromycin 500mg daily (start 02/10/18, Day 2) Zosyn 3.375 gm IV Q8H (start 02/09/18, Day 3) Ceftriaxone 1gm daily (discontinued by pulm) Blood cultures ( 02/09/18): No growth x 48 hrs x 2 Cough Robitussin Q4h prn Chest Discomfort Pro-BNP: 1380 Trop I : 0.0330, negative x 3 EKG: sinus tach at 114, biatrial enlargement Prophylaxis Pepcid 20mg po daily Lovenox 40mg SC Daily [facility] Discussed with Dr. Schultz
[2018-02-11] MEDS: Enoxaparin 40 mg Syringe SC SCH (09:34)
[2018-02-11] MEDS: guaiFENesin 100 mg/5 ml Syrup UD PO PRN (09:34)
[2018-02-11 10:06] LABS: LYMPHOCYTE 6 % (20-40); MONOCYTE 3 % (0-10); NEUTROPHIL 91 % (50-75); PLATELET ESTIMATE NORMAL (NORMAL); TOTAL CELLS COUNTED 100
[2018-02-11 10:07] LABS: ANISOCYTOSIS SLIGHT; HYPOCHROMIC SLIGHT; POLYCHROMIC SLIGHT
[2018-02-11 10:13] LABS: LARGE PLATELETS PRESENT
[2018-02-11 10:14] LABS: TOXIC GRANULATION PRESENT
[2018-02-11] MEDS ORDERED: guaiFENesin 600 mg ER Tab PO SCH (11:30)
--- NOTE | 2018-02-11 14:56 | CARD ---
APPROVED REPORT EXAM: Two-dimensional and M-mode echocardiogram with Doppler and color Doppler. Other Information Quality : GoodRhythm : INDICATION ASTHMA EXACEBATION RIGHT LOWER LUNG PNEUM, BNP 2D DIMENSIONS IVSd1.3 (0.7-1.1cm)LVDd5.0 (3.9-5.9cm) LVOT Diameter2.0 (1.8-2.4cm)PWd1.2 (0.7-1.1cm) LVDs3.1 (2.5-4.0cm)FS (%) 38.6 % LVEF (%)68.6 (>50%) M-Mode DIMENSIONS Left Atrium (MM)4.58 (2.5-4.0cm)Aortic Root3.23 (2.2-3.7cm) Aortic Cusp Exc.1.09 (1.5-2.0cm) Aortic Valve AoV Peak Kguelnfa864.6cm/sAoV VTI94.8cmAO Peak GR.91mmHg LVOT Peak Pashgtie554.6cm/sLVOT VTI31.64cmAO Mean GR.62mmHg CHEN (VMAX)0.16bz4WKR (VTI)1.03cm2 Mitral Valve MV E Jlenoleq809.3cm/sE/A ratio0.0 TDI E/Lateral E'0.0E/Medial E'0.0 Tricuspid Valve TR Peak Qbzagkfq870ks/sTR Peak Gr.64mmHg LEFT VENTRICLE The left ventricle is normal size. There is mild concentric left ventricular hypertrophy. Left ventricle systolic function is normal. The Ejection Fraction is 65-70%. There is normal LV segmental wall motion. Tissue Doppler imaging reveals abnormal left ventricular diastolic dysfunction. RIGHT VENTRICLE The right ventricle is normal size. There is normal right ventricular wall thickness. The right ventricular systolic function is normal. ATRIA The left atrium is moderately dilated. The right atrium size is normal. The interatrial septum bows toward right atrium consistent with elevated left atrial pressure. AORTIC VALVE The aortic valve is severely calcified and displays decreased opening. There is trace aortic regurgitation. There is severe valvular aortic stenosis. Calculated aortic valve area is 0.85 cm2 with maximum pressure gradient of 91 mmHg and mean pressure gradient of 62 mmHg. MITRAL VALVE The mitral valve is normal in structure. There is no evidence of mitral valve prolapse. There is no mitral valve stenosis. Mitral regurgitation is mild. TRICUSPID VALVE The tricuspid valve is normal in structure. There is mild tricuspid regurgitation. Right ventricular systolic pressure is estimated at greater than 60 mmHg. There is severe pulmonary hypertension. PULMONIC VALVE The pulmonic valve is not well visualized. There is no pulmonic valvular regurgitation. GREAT VESSELS The aortic root is normal in size. PERICARDIAL EFFUSION There is no significant pericardial effusion. <Conclusion> Left ventricle systolic function is normal. The Ejection Fraction is 65-70%. Hypertensive heart disease. Diastolic dysfunction. There is severe valvular aortic stenosis. Mitral regurgitation is mild. There is mild tricuspid regurgitation. There is severe pulmonary hypertension. There is no pulmonic valvular regurgitation.
[2018-02-11] MEDS: Albuterol-Ipratrop 3 mg / 0.5 (3 ml) UD INH PRN ×2 (15:47→20:14)
--- NOTE | 2018-02-11 20:22 | CP.PCM.PN ---
Subjective - Date & Time of Evaluation Date of Evaluation: 02/11/18 Time of Evaluation: 18:20 - Subjective Subjective: patient seen and examined Less cough and shortness of breath Afebrile No chest pain On antibiotics for pneumonia and bronchiectasis Continue nebulizer treatment and steroids Follow-up chest x-ray on Tuesday Objective - Vital Signs/Intake and Output Vital Signs (last 24 hours): Temp Pulse Resp BP Pulse Ox 97.9 F 94 H 20 142/80 100 02/11/18 15:05 02/11/18 18:41 02/11/18 15:05 02/11/18 15:05 02/11/18 15:05 Intake and Output: 02/11/18 02/12/18 18:59 06:59 Intake Total 740 Output Total 550 Balance 190 - Medications Medications: Current Medications Albuterol/Ipratropium (Duoneb 3 Mg/0.5 Mg (3 Ml) Ud) 3 ml INH RQ4 PRN PRN Reason: Shortness of Breath Last Admin: 02/11/18 20:14 Dose: 3 ml Enoxaparin Sodium (Lovenox) 40 mg SC DAILY [facility] Last Admin: 02/11/18 09:34 Dose: 40 mg Famotidine (Pepcid) 20 mg PO DAILY [facility] Last Admin: 02/11/18 09:34 Dose: 20 mg Guaifenesin (Robitussin) 100 mg PO Q4H PRN PRN Reason: Cough Last Admin: 02/11/18 09:34 Dose: 100 mg Azithromycin 500 mg/ Sodium (Chloride) 250 mls @ 250 mls/hr IVPB Q24H [facility] PRN Reason: Protocol Last Admin: 02/11/18 05:21 Dose: 250 mls/hr Piperacillin Sod/Tazobactam Sod (Zosyn 3.375 Gm Iv Premix) 3.375 gm in 50 mls @ 200 mls/hr IVPB Q8H [facility] PRN Reason: Protocol Last Admin: 02/11/18 16:29 Dose: 200 mls/hr Methylprednisolone (Solu-Medrol) 40 mg IVP Q12H [facility] Last Admin: 02/11/18 19:55 Dose: 40 mg Pneumococcal Polyvalent Vaccine (Pneumovax 23 Vaccine) 0.5 ml IM .ONCE ONE Stop: 02/12/18 10:01 - Labs Labs: 02/11/18 07:17 02/11/18 07:17 Assessment and Plan (1) Exacerbation of asthma Status: Acute (2) Pneumonia Status: Acute
[2018-02-12] MEDS: Piperacill/Tazo 3.375gm in Dex 3.375 GM/50 ML BAG IVPB SCH ×2 (00:22→08:23)
[2018-02-12] MEDS: Azithromycin 500 MG in Sodium Chloride 0.9% 250 ML IVPB SCH (05:15)
[2018-02-12] MEDS: Albuterol-Ipratrop 3 mg / 0.5 (3 ml) UD INH PRN ×3 (07:33→20:56)
[2018-02-12 07:38] LABS: BASO % 0.3 % (0.0-2.0); HEMOGLOBIN 13.3 g/dL (12.0-18.0); LYMPH # 1.4 K/uL (1.0-4.3); LYMPH % 12.5 % (20.0-40.0); MEAN CELL VOLUME 78.6 fL (80.0-94.0); MEAN CORPUSCULAR HEMOGLOBIN 25.5 pg (27.0-31.0); MEAN CORPUSCULAR HGB CONC 32.5 g/dL (33.0-37.0); MEAN PLATELET VOLUME 9.2 fL (7.2-11.7); NEUT # 8.5 K/uL (1.8-7.0); NEUT % 78.2 % (50.0-75.0); NRBC % 0.1 % (0.0-2.0); RBC 5.21 Mil/uL (4.40-5.90); WHITE BLOOD COUNT 10.8 K/uL (4.8-10.8)
[2018-02-12 08:13] LABS: ALB/GLOB RATIO 1.1 (1.0-2.1); ALBUMIN 3.4 g/dL (3.5-5.0); ALT/SGPT 59 U/L (21-72); AST/SGOT 41 U/L (17-59); BLOOD UREA NITROGEN 19 mg/dL (9-20); CALCIUM 8.7 mg/dl (8.6-10.4); GFR AFRICAN-AMERICAN > 60; GFR NON-AFRICAN AMERICAN > 60
[2018-02-12] MEDS: MethylPREDNISolone 40 mg Vial IVP SCH (08:22)
--- NOTE | 2018-02-12 08:33 | CP.PCM.PN ---
Subjective - Date & Time of Evaluation Date of Evaluation: 02/12/18 Time of Evaluation: 08:33 - Subjective Subjective: PGY-[address] Schultz's Service: Patient was seen and examined at bedside. Nursing reports no acute events overnight. Patient reports SOB, cough better than admission but still feels persistently SOB when exerting himself. When patient walked around nursing station twice his oxygen saturation decreased to adrián of 84%. He asked to stop and rest once to "catch his breath." He denied fever, chills, dizziness, headache, lightheadedness, chest pain, or palpitations. Objective - Vital Signs/Intake and Output Vital Signs (last 24 hours): Temp Pulse Resp BP Pulse Ox 97.9 F 88 20 131/64 99 02/12/18 07:50 02/12/18 07:50 02/12/18 07:50 02/12/18 07:50 02/12/18 07:50 Intake and Output: 02/12/18 02/12/18 06:59 18:59 Intake Total 540 Balance 540 - Medications Medications: Current Medications Albuterol/Ipratropium (Duoneb 3 Mg/0.5 Mg (3 Ml) Ud) 3 ml INH RQ4 PRN PRN Reason: Shortness of Breath Last Admin: 02/12/18 07:33 Dose: 3 ml Enoxaparin Sodium (Lovenox) 40 mg SC DAILY [facility] Last Admin: 02/11/18 09:34 Dose: 40 mg Famotidine (Pepcid) 20 mg PO DAILY [facility] Last Admin: 02/11/18 09:34 Dose: 20 mg Guaifenesin (Robitussin) 100 mg PO Q4H PRN PRN Reason: Cough Last Admin: 02/11/18 09:34 Dose: 100 mg Azithromycin 500 mg/ Sodium (Chloride) 250 mls @ 250 mls/hr IVPB Q24H [facility] PRN Reason: Protocol Last Admin: 02/12/18 05:15 Dose: 250 mls/hr Piperacillin Sod/Tazobactam Sod (Zosyn 3.375 Gm Iv Premix) 3.375 gm in 50 mls @ 200 mls/hr IVPB Q8H [facility] PRN Reason: Protocol Last Admin: 02/12/18 08:23 Dose: 200 mls/hr Methylprednisolone (Solu-Medrol) 40 mg IVP Q12H [facility] Last Admin: 02/12/18 08:22 Dose: 40 mg Pneumococcal Polyvalent Vaccine (Pneumovax 23 Vaccine) 0.5 ml IM .ONCE ONE Stop: 02/12/18 10:01 - Labs Labs: 02/12/18 07:22 02/12/18 07:22 - Constitutional Appears: Non-toxic, No Acute Distress - Head Exam Head Exam: ATRAUMATIC, NORMAL INSPECTION - Eye Exam Eye Exam: EOMI Pupil Exam: PERRL - ENT Exam ENT Exam: Mucous Membranes Moist - Respiratory Exam Respiratory Exam: Wheezes (improving). absent: Clear to Ausculation Bilateral, NORMAL BREATHING PATTERN - Cardiovascular Exam Cardiovascular Exam: REGULAR RHYTHM, +S1, +S2 - GI/Abdominal Exam GI & Abdominal Exam: Soft, Normal Bowel Sounds. absent: Tenderness - Extremities Exam Extremities Exam: Normal Inspection. absent: Pedal Edema - Back Exam Back Exam: absent: CVA tenderness (L), CVA tenderness (R) - Neurological Exam Neurological Exam: Alert, Awake, Oriented x3 - Psychiatric Exam Psychiatric exam: Normal Affect, Normal Mood - Skin Skin Exam: Normal Color, Warm Assessment and Plan - Assessment and Plan (Free Text) Plan: 57M with pmh of asthma presents with shortness of breath and chest congestion with productive cough. Asthma exacerbation Pt desaturated down to 84% while walking around nursing station CT: extensive bronchiectasis and cystic changes in right upper lung. soft tissue density within the anterior right lung apex and within the medial right upper lung, concerning for neoplasm and lymphadenopathy. could be further evaluated with PET scanning. multiple nodules throughout the left lung some of which are similar to prior, one of which is increase as described in body of the report. nodular right lower lung infiltrate possibly acute infectious/ inflammatory etiology D-Dimer <200 Pulm consult: Dr. Dominguez, help appreciated Duonebs q4h PRN Start Prednisone taper: Prednisone 40mg PO tomorrow (02/12) Discontinued Solumedrol IV Right Lower Lobe Pneumonia see CT above Start Avelox 400mg PO Discontinued Previous Antibiotics: Azithromycin 500mg daily (start 02/10/18, 3 Day course) Zosyn 3.375 gm IV Q8H (start 02/09/18, 4 Day course ) Ceftriaxone 1gm daily (discontinued by pulm) Blood cultures (3/22/18): No growth x 3 days x 2 Cough Robitussin Q4h prn Chest Discomfort, resolved Pro-BNP: 1380 Trop I : 0.0330, negative x 3 EKG: sinus tach at 114, biatrial enlargement Prophylaxis Pepcid 20mg po daily Lovenox 40mg SC Daily SCDs Disposition: DC planning for tomorrow AM. Switched to PO meds. Plan is for discharge with Medrol Dose Pack, and Levaquin PO. Callum Elias PGY-[address] Schultz
[2018-02-12] MEDS: Enoxaparin 40 mg Syringe SC SCH (09:13)
[2018-02-12] MEDS: guaiFENesin 100 mg/5 ml Syrup UD PO PRN (09:13)
[2018-02-12] MEDS ORDERED: Pneumococcal 23-Valent Vaccine IM ONE (10:00)
[2018-02-13 06:27] LABS: BASO # 0.1 K/uL (0.0-0.2); BASO % 0.5 % (0.0-2.0); EOS # 0.1 K/uL (0.0-0.7); EOS % 0.9 % (0.0-4.0); HEMOGLOBIN 14.7 g/dL (12.0-18.0); LYMPH # 3.5 K/uL (1.0-4.3); LYMPH % 32.4 % (20.0-40.0); MEAN CELL VOLUME 78.5 fL (80.0-94.0); MEAN CORPUSCULAR HEMOGLOBIN 25.3 pg (27.0-31.0); MEAN CORPUSCULAR HGB CONC 32.3 g/dL (33.0-37.0); MONO # 1.2 K/uL (0.0-0.8); NEUT % 55.2 % (50.0-75.0); NRBC % 0.1 % (0.0-2.0); RBC 5.82 Mil/uL (4.40-5.90); RED CELL DISTRIBUTION WIDTH 13.9 % (11.5-14.5); WHITE BLOOD COUNT 10.9 K/uL (4.8-10.8)
[2018-02-13 06:45] LABS: ALB/GLOB RATIO 1.1 (1.0-2.1); ALBUMIN 3.5 g/dL (3.5-5.0); ALT/SGPT 54 U/L (21-72); AST/SGOT 38 U/L (17-59); BLOOD UREA NITROGEN 22 mg/dL (9-20); CALCIUM 8.5 mg/dl (8.6-10.4); GFR AFRICAN-AMERICAN > 60; GFR NON-AFRICAN AMERICAN > 60
[2018-02-13 08:15] VITALS: RESP 20
[2018-02-13] MEDS: guaiFENesin 100 mg/5 ml Syrup UD PO PRN (10:02)
[2018-02-13] MEDS: Enoxaparin 40 mg Syringe SC SCH (10:02)
[2018-02-13] MEDS: Albuterol-Ipratrop 3 mg / 0.5 (3 ml) UD INH PRN (11:59)
[2018-02-13] MEDS: guaiFENesin 100 mg/5 ml Syrup UD PO SCH ×2 (13:36→16:39)
[2018-02-13 15:54] VITALS: BP 117/70; TEMP 98.3; O2SAT 96
[2018-02-13] MEDS ORDERED: Albuterol-Ipratrop 3 mg / 0.5 (3 ml) UD INH SCH (16:00)
--- NOTE | 2018-02-13 16:15 | CP.PCM.DIS ---
Provider - Provider Date of Admission: 02/09/18 04:07 Attending physician: Andrea Schultz Jr, MD Primary care physician: Non [facility] Provider Consults: Pulmonary: Dr Dominguez Time Spent in preparation of Discharge (in minutes): 35 Hospital Course - Lab Results Lab Results: Micro Results 02/09/18 04:00 Blood Blood Culture - Preliminary NO GROWTH AFTER 4 DAYS 02/09/18 04:30 Blood Blood Culture - Preliminary NO GROWTH AFTER 4 DAYS Most Recent Lab Values WBC 10.9 K/uL (4.8-10.8) H 02/13/18 06:17 RBC 5.82 Mil/uL (4.40-5.90) 02/13/18 06:17 Hgb 14.7 g/dL (12.0-18.0) 02/13/18 06:17 Hct 45.6 % (35.0-51.0) 02/13/18 06:17 MCV 78.5 fL (80.0-94.0) L 02/13/18 06:17 MCH 25.3 pg (27.0-31.0) L 02/13/18 06:17 MCHC 32.3 g/dL (33.0-37.0) L 02/13/18 06:17 RDW 13.9 % (11.5-14.5) 02/13/18 06:17 Plt Count 332 K/uL (130-400) 02/13/18 06:17 MPV 9.0 fL (7.2-11.7) 02/13/18 06:17 Neut % (Auto) 55.2 % (50.0-75.0) 02/13/18 06:17 Lymph % (Auto) 32.4 % (20.0-40.0) 02/13/18 06:17 [place] % (Auto) 11.0 % (0.0-10.0) H 02/13/18 06:17 Eos % (Auto) 0.9 % (0.0-4.0) 02/13/18 06:17 Baso % (Auto) 0.5 % (0.0-2.0) 02/13/18 06:17 Neut # (Auto) 6.0 K/uL (1.8-7.0) 02/13/18 06:17 Lymph # (Auto) 3.5 K/uL (1.0-4.3) 02/13/18 06:17 [place] # (Auto) 1.2 K/uL (0.0-0.8) H 02/13/18 06:17 Eos # (Auto) 0.1 K/uL (0.0-0.7) 02/13/18 06:17 Baso # (Auto) 0.1 K/uL (0.0-0.2) 02/13/18 06:17 Neutrophils % (Manual) 91 % (50-75) H 02/11/18 07:17 Lymphocytes % (Manual) 6 % (20-40) L 02/11/18 07:17 Monocytes % (Manual) 3 % (0-10) 02/11/18 07:17 Toxic Granulation Present 02/11/18 07:17 Platelet Estimate Normal (NORMAL) 02/11/18 07:17 Large Platelets Present 02/11/18 07:17 Polychromasia Slight 02/11/18 07:17 Hypochromasia (manual) Slight 02/11/18 07:17 Anisocytosis (manual) Slight 02/11/18 07:17 Microcytosis (manual) Slight 02/09/18 07:56 D-Dimer, Quantitative < 200 ng/mlDDU (0-243) 02/09/18 01:41 Puncture Site Rr 02/09/18 04:10 pCO2 52 mm/Hg (35-45) H 02/09/18 04:10 pO2 128 mm/Hg (80-100) H 02/09/18 04:10 HCO3 26.4 mmol/L (21-28) 02/09/18 04:10 ABG pH 7.35 (7.35-7.45) 02/09/18 04:10 ABG Total CO2 30.3 mmol/L (22-28) H 02/09/18 04:10 ABG O2 Saturation 99.0 % (95-98) H 02/09/18 04:10 ABG Base Excess 2.0 mmol/L (-2.0-3.0) 02/09/18 04:10 ABG Hemoglobin 14.6 g/dL (11.7-17.4) 02/09/18 04:10 ABG Carboxyhemoglobin 1.9 % (0.5-1.5) H 02/09/18 04:10 POC ABG HHb (Measured) 1.0 % (0.0-5.0) 02/09/18 04:10 ABG Methemoglobin 1.3 % (0.0-3.0) 02/09/18 04:10 [place] Test Pos 02/09/18 04:10 Hgb O2 Saturation 95.8 % (95.0-98.0) 02/09/18 04:10 Liter Flow 7.0 02/09/18 04:10 Sodium 137 mmol/L (132-148) 02/13/18 06:17 Potassium 4.2 mmol/L (3.6-5.2) 02/13/18 06:17 Chloride 93 mmol/L (98-107) L 02/13/18 06:17 Carbon Dioxide 32 mmol/L (22-30) H 02/13/18 06:17 Anion Gap 16 (10-20) 02/13/18 06:17 BUN 22 mg/dL (9-20) H 02/13/18 06:17 Creatinine 0.9 mg/dL (0.8-1.5) 02/13/18 06:17 Est GFR ( Amer) > 60 02/13/18 06:17 Est GFR (Non-Af Amer) > 60 02/13/18 06:17 Random Glucose 93 mg/dL (75-110) 02/13/18 06:17 Calcium 8.5 mg/dl (8.6-10.4) L 02/13/18 06:17 Phosphorus 4.2 mg/dL (2.5-4.5) 02/13/18 06:17 Magnesium 2.3 mg/dL (1.6-2.3) 02/13/18 06:17 Total Bilirubin 0.7 mg/dL (0.2-1.3) 02/13/18 06:17 AST 38 U/L (17-59) 02/13/18 06:17 ALT 54 U/L (21-72) 02/13/18 06:17 Alkaline Phosphatase 39 U/L (38-126) 02/13/18 06:17 Total Creatine Kinase 526 U/L (55-170) H 02/10/18 02:04 CK-MB (Mass) 7.45 ng/mL (0.0-3.38) H 02/10/18 02:04 Troponin I 0.0710 ng/mL (0.00-0.120) 02/10/18 02:04 NT-Pro-B Natriuret Pep 1380 pg/mL (0-900) H 02/09/18 01:41 Total Protein 6.7 g/dL (6.3-8.3) 02/13/18 06:17 Albumin 3.5 g/dL (3.5-5.0) 02/13/18 06:17 Globulin 3.2 gm/dL (2.2-3.9) 02/13/18 06:17 Albumin/Globulin Ratio 1.1 (1.0-2.1) 02/13/18 06:17 - Hospital Course Hospital Course: CC: SOB HPI: Patient is a 57 y/o M with pmhx of asthma presents today for worsening shortness of breath. Patient started becoming short of breath and having chest congestion last . Patient had increasing cough with yellow phlegm. Patient denies fevers of sore throat. Patient denies chest pain, abdominal pain , N/V, C/D. Today patient used 3 nebulizer treatments. He went to sleep and woke up at midnight with chest tightness and severe shortness of breath and decided to come to the ED. Patient also complains of chest discomfort on the right side which he describes as something moving up and down. He experiences this when he is short of breath, but says it is not painful. Patient has never been intubated in the past but had a hospitalization for an asthma exacerbation in 1994 and 2012. Security Messenger: Dr. 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 Patient was diagnosed with acute asthma exacerbation and right lower lobe pneumonia. Patient's chest CT showed "nodular right lower lung infiltrate." Dr. Dominguez from pulmonology was consulted. Patient was treated with solu-medrol and duonebs as well as azithromycin, zosyn, and avelox. Upon discharge after a three day admission, patient's breathing had improved immensely and was ambulating without shortness of breath. Patient was discharged with avelox and advair. Please see latest Progress note for complete hospital management. - Assessment and Plan (Free Text) Plan: 57M with pmh of asthma presents with shortness of breath and chest congestion with productive cough. Asthma exacerbation CT: extensive bronchiectasis and cystic changes in right upper lung. soft tissue density within the anterior right lung apex and within the medial right upper lung, concerning for neoplasm and lymphadenopathy. could be further evaluated with PET scanning. multiple nodules throughout the left lung some of which are similar to prior, one of which is increase as described in body of the report. nodular right lower lung infiltrate possibly acute infectious/ inflammatory etiology D-Dimer <200 Pulm consult: Dr. Dominguez, rachana Gomez q4h PRN Start Prednisone taper: Prednisone 40mg PO tomorrow (02/12) Discontinued Solumedrol IV Right Lower Lobe Pneumonia see CT above Start Avelox 400mg PO Discontinued Previous Antibiotics: Azithromycin 500mg daily (start 02/10/18, 3 Day course) Zosyn 3.375 gm IV Q8H (start 02/09/18, 4 Day course ) Ceftriaxone 1gm daily (discontinued by pulm) Blood cultures (02/09/18): No growth x 3 days x 2 Cough Robitussin Q4h prn Chest Discomfort, resolved Pro-BNP: 1380 Trop I : 0.0330, negative x 3 EKG: sinus tach at 114, biatrial enlargement Prophylaxis Pepcid 20mg po daily Lovenox 40mg SC Daily SCDs Discharge Exam - Additional Findings Additional findings: - Constitutional Appears: Non-toxic, No Acute Distress - Head Exam Head Exam: ATRAUMATIC, NORMAL INSPECTION - Eye Exam Eye Exam: EOMI Pupil Exam: PERRL - ENT Exam ENT Exam: Mucous Membranes Moist - Respiratory Exam Respiratory Exam: Wheezes (improving). absent: Clear to Ausculation Bilateral, NORMAL BREATHING PATTERN - Cardiovascular Exam Cardiovascular Exam: REGULAR RHYTHM, +S1, +S2 - GI/Abdominal Exam GI & Abdominal Exam: Soft, Normal Bowel Sounds. absent: Tenderness - Extremities Exam Extremities Exam: Normal Inspection. absent: Pedal Edema - Back Exam Back Exam: absent: CVA tenderness (L), CVA tenderness (R) - Neurological Exam Neurological Exam: Alert, Awake, Oriented x3 - Psychiatric Exam Psychiatric exam: Normal Affect, Normal Mood - Skin Skin Exam: Normal Color, Warm Discharge Plan - Discharge Medications Prescriptions: Fluticasone/Salmeterol 250/50 [Advair Diskus] 1 puff IH Q12 #1 dsk Methylprednisolone [Medrol Dose Pack (21 tabs)] See Taper PO DAILY #21 mg Moxifloxacin [Avelox] 400 mg PO DAILY 3 Days #3 tab - Follow Up Plan Condition: STABLE Disposition: HOME/ ROUTINE Instructions: Asthma in Adults, Avoiding Asthma Triggers, Prednisone, Community Acquired Pneumonia (DC), Bacterial Pneumonia (DC) Additional Instructions: Patient is medically stable for discharge. Patient had the following prescriptions electronically sent to his pharmacy ( [facility] at [address] [facility]): 1. Advair Diskus 1 puff IH Q12H 2. Medrol Dose Pack - taper dosing (please see the instructions provided as the number of pills to be taken changes everyday) 3. Avelox 400mg PO QD for 3 days Patient should follow-up with a PMD in 1 week to monitor his progression after discharge. Patient stated he was interested in Dr Schultz becoming his PMD - if that is the case, Dr Schultz's information has been provided in the referral section. Patient should continue his home medications until told otherwise by his PMD. If symptoms return, patient should go to his nearest emergency department. Referrals: Andrea Schultz Jr., MD [Medical Doctor] - Non [facility] Provider, [Primary Care Provider] -
[2018-02-13 17:45] VITALS: PULSE 101
== END 2018-02-13 17:51 | disposition home or self-care (01) | DRG 194 ==
LOC: SUPCPDRO 01:11 → C.ER 01:11 → C.5S 04:07 → C.6T 02-10 14:38 → C.5S 02-10 14:42
PROVIDERS: ADMIT Internal Medicine; ATTEND Internal Medicine
DX: J18.9 Pneumonia, unspecified organism (principal); J45.901 Unspecified asthma with (acute) exacerbation; J47.0 Bronchiectasis with acute lower respiratory infection; Z87.891 Personal history of nicotine dependence